=== PATIENT | female | born 1985 | race American Indian/Alaskan Native ===

== ENCOUNTER 2018-01-12 11:38 | Emergency (ER) | payer OTHER ==
[2018-01-12 11:53] VITALS: BP 129/85
[2018-01-12] MEDS ORDERED: TORADOL IM ONE (13:44)
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
[2018-01-12] MEDS ORDERED: VALIUM PO ONE (14:15)
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
--- NOTE | 2018-01-12 14:40 | XRay Report ---
LUMBOSACRAL SPINE, 3 VIEWS: History: Back pain Findings: The vertebral bodies, disk spaces and posterior elements are intact. No compression deformity or malalignment. The SI joints are symmetric and unremarkable. Impression: 1. No evidence for acute injury to the lumbar spine.
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
== END 2018-01-12 16:06 | disposition home or self-care (01) ==
LOC: ED 11:38
DX: M79.662 Pain in left lower leg (principal); M54.5 Low back pain
CPT/HCPCS: 72100; 73590; 96372; 99283; J1885